=== PATIENT | female | born 1995 | race Two or more races ===

== ENCOUNTER 2017-09-18 13:55 | Emergency (ER) | payer MEDICAID ==
[2017-09-18 14:55] LABS: BILIRUBIN,URINE NEGATIVE (NEG); CLARITY,URINE CLEAR; COLOR,URINE YELLOW; GLUCOSE,URINE NEGATIVE (NEG); NITRITE,URINE NEGATIVE (NEG); PH,URINE 5.5; PROTEIN,URINE NEGATIVE (NEG-TRACE); UROBILINOGEN,URINE 0.2 mg/dL (0.2 mg/dL)
[2017-09-18 15:01] LABS: BACTERIA,URINE MANY /HPF (0-FEW); RBC,URINE 0 /HPF (0-2); SQUAMOUS EPITHELIAL CELL,UR MANY /LPF
[2017-09-18] MEDS: cefTRIAXone IM 250 MG VIAL IM (15:28)
[2017-09-18] MEDS: AZITHROMYCIN 250 MG TABLET. PO (15:28)
== END 2017-09-18 16:47 | disposition home or self-care (01) ==
LOC: ER 13:55
DX: N76.0 Acute vaginitis (principal); B96.89 Other specified bacterial agents as the cause of diseases classified elsewhere; N39.0 Urinary tract infection, site not specified; Z90.49 Acquired absence of other specified parts of digestive tract
CPT/HCPCS: 81001; 96372; 99284-25; J0696; Q0111; Q0144

== ENCOUNTER 2017-10-27 10:28 | Emergency (ER) | payer SELFPAY ==
[~2017-10-27] VITALS: Ht 152.4 cm; Wt 71.7 kg
[~2017-10-27 10:28] MED LIST: METR500T PO; SULF1TAB24 PO
[2017-10-27 10:49] VITALS: BP 104/59
[2017-10-27 11:16] LABS: BILIRUBIN,URINE NEGATIVE (NEG); CLARITY,URINE CLEAR; COLOR,URINE YELLOW; NITRITE,URINE NEGATIVE (NEG); PH,URINE 5.5; PROTEIN,URINE NEGATIVE (NEG-TRACE); UROBILINOGEN,URINE 0.2 mg/dL (0.2 mg/dL)
[2017-10-27 11:33] LABS: BACTERIA,URINE FEW /HPF (0-FEW); RBC,URINE OCC /HPF (0-2)
[2017-10-27 11:34] LABS: SQUAMOUS EPITHELIAL CELL,UR MOD /LPF
[2017-10-27] MEDS ORDERED: cefTRIAXone IM 250 MG VIAL IM ONE ×2 (11:44→12:00)
[2017-10-27] MEDS ORDERED: AZITHROMYCIN 250 MG TABLET. ONE (11:44)
[2017-10-27] MEDS ORDERED: METR500T PO (11:51)
--- NOTE | 2017-10-27 11:51 | PHYS DOC ---
Past Medical History Past Medical History: No Pertinent History Past Surgical History: Appendectomy Alcohol Use: None Drug Use: None Adult General Chief Complaint Chief Complaint: PAIN ON URINATION HPI HPI 22-year-old female presents to ER with complaints of pain with urination. Patient reports symptoms have been ongoing for the past few days. She reports she was treated in the ER on 09/18/17 diagnosed with a UTI and bacterial vaginosis. Patient reports following prescription for Flagyl her symptoms had improved slightly however over the past couple of weeks symptoms have returned with increased yellow vaginal discharge and pelvic pressure. She reports she has been sexually active since treatment last month with her boyfriend. Patient denies fever or chills, fatigue, or back pain. Patient reports she is uncertain of as her menstrual cycle has been slightly irregular. Review of Systems Review of Systems Constitutional: Denies fever or chills [] Eyes: Denies change in visual acuity, redness, or eye pain [] HENT: Denies nasal congestion or sore throat [] Respiratory: Denies cough or shortness of breath [] Cardiovascular: Denies chest pain or palpitations GI: Denies abdominal pain, nausea, vomiting, bloody stools or diarrhea [] : Reports dysuria. Denies hematuria or incontinence. Reports pelvic pressure with yellow vaginal discharge. Musculoskeletal: Denies back pain or joint pain [] Integument: Denies rash or skin lesions [] Neurologic: Denies headache, focal weakness or sensory changes [] All other systems were reviewed and found to be within normal limits, except as documented in this note. Current Medications Current Medications Current Medications Medications (Trade) Dose Ordered Sig/[facility] Start Time Stop Time Status Last Admin Dose Admin Azithromycin (Zithromax) 1,000 mg 1X ONCE 10/27/17 12:00 10/27/17 12:33 DC Ceftriaxone Sodium (Rocephin Im) 250 mg 1X ONCE 10/27/17 12:00 10/27/17 12:33 DC Allergies Allergies Allergies Coded Allergies Type Severity Reaction Last Updated Verified No Known Drug Allergies 09/18/17 No Physical Exam Physical Exam Constitutional: Well developed, well nourished, no acute distress, non-toxic appearance. [] HENT: Normocephalic, atraumatic, bilateral ears normal, mucous membranes pink/ moist, no oral exudates, nose normal. [] Eyes: PERRLA, conjunctiva normal, no discharge. [] Neck: Normal range of motion, no tenderness, supple Cardiovascular:Heart rate regular rhythm, no murmur [] Lungs & Thorax: Bilateral breath sounds clear to auscultation. Resp. equal/ nonlabored Abdomen: Bowel sounds normal, soft/nondistended, no tenderness, no masses Skin: Warm, dry, no erythema, no rash. [] Back: No tenderness, no CVA tenderness. [] Extremities: No tenderness, no cyanosis, no clubbing, ROM intact, no edema. [] Neurologic: Alert and oriented X 3, normal motor function, normal sensory function, no focal deficits noted. [] Psychologic: Affect normal, judgement normal, mood normal. [] Current Patient Data Vital Signs Vital Signs Date Time Temp Pulse Resp B/P (MAP) Pulse Ox O2 Delivery O2 Flow Rate FiO2 10/27/17 10:49 98.5 72 20 104/59 (74) 98 Room Air 98.5 Lab Values Laboratory Tests Test 10/27/17 10:50 10/27/17 11:08 Urine Collection Type Unknown Urine Color Yellow Urine Clarity Clear Urine pH 5.5 Urine Specific [place] 1.020 Urine Protein Negative mg/dL (NEG-TRACE) Urine Glucose (UA) Negative mg/dL (NEG) Urine Ketones (Stick) Negative mg/dL (NEG) Urine Blood Negative (NEG) Urine Nitrite Negative (NEG) Urine Bilirubin Negative (NEG) Urine Urobilinogen Dipstick 0.2 mg/dL (0.2 mg/dL) Urine Leukocyte Esterase Trace (NEG) Urine RBC Occ /HPF (0-2) Urine WBC 11-20 /HPF (0-4) Urine Squamous Epithelial Cells Mod /LPF Urine Bacteria Few /HPF (0-FEW) Urine Mucus Mod /LPF POC Urine HCG, Qualitative Hcg negative (Negative) EKG EKG [] Radiology/Procedures Radiology/Procedures [] Course & Med Decision Making Course & Med Decision Making Pertinent Labs reviewed. (See chart for details) Pt is preferring not to have another pelvic exam as her sxs are similar to last month. UA was obtained and showed trace leuks with 11-20 WBCs neg. nitrates- UCG neg. Further discussion and pt is just wanting Rx for Flagyl with no additional tests. Discussed tx with IM Rocephin and PO Azithromycin and pt is not wanting those medications this time. UA GC/chlamydia is pending and pt is aware and prefers to wait on tx. Discussed need for f/u with [facility] for further care/eval- will provide community resources for clinics/physicians. Will tx UTI with Keflex. Pt advised on condom use until infection sxs resolve. At time of discharge discussion pt was in no visible distress/nontoxic. Discharge instructions discussed and education provided on signs and symptoms to return to ER for. [employer] issues- Keflex 500mg 1 BID x7 days Rx hand written Dragon Disclaimer Dragon Disclaimer This electronic medical record was generated, in whole or in part, using a voice recognition dictation system. Departure Departure Impression: Primary Impression: UTI (urinary tract infection) Additional Impression: Bacterial vaginal infection Disposition: 01 HOME, SELF-CARE Referrals: NO PCP (PCP) Patient Instructions: Bacterial Vaginosis, Urinary Tract Infection Additional Instructions: Condom use while vaginal discharge/vaginal symptoms continue- you need follow- up with an [facility]OD TE[facility] doctor for re-evaluation Scripts Metronidazole (FLAGYL) 500 Mg Tablet 1 TAB PO BID, #14 TAB 0 Refills Prov: COCO ZHENG APRN 10/27/17 Problem Qualifiers COCO ZHENG APRN Oct 27, 2017 11:51
[2017-10-27] MEDS ORDERED: AZITHROMYCIN 250 MG TABLET. PO ONE (12:00)
== END 2017-10-27 11:59 | disposition home or self-care (01) ==
LOC: ER 10:28
DX: N39.0 Urinary tract infection, site not specified (principal); N76.0 Acute vaginitis; B96.89 Other specified bacterial agents as the cause of diseases classified elsewhere; Z90.49 Acquired absence of other specified parts of digestive tract
CPT/HCPCS: 81001; 81025; 87086; 99284

== ENCOUNTER 2018-03-01 00:36 | Emergency (ER) | payer SELFPAY ==
[~2018-03-01] VITALS: Ht 152.4 cm; Wt 68.0 kg
[2018-03-01 00:48] VITALS: BP 141/88
[2018-03-01] MEDS ORDERED: ERYT1OIN6 OS (01:11)
--- NOTE | 2018-03-01 01:11 | PHYS DOC ---
Past Medical History Past Medical History: No Pertinent History Past Surgical History: Appendectomy, Other Additional Past Surgical Histo: HERNIA REPAIR Alcohol Use: None Drug Use: None Adult General Chief Complaint Chief Complaint: EYE PROBLEMS HPI HPI Patient is a 22 year old female who presents with swelling of her left lower lid that began 3 days ago and noted spreading to the upper lid today. Patient is been using [id number] stye lubricant ointment without any relief. No visual changes. No fever. There is a small amount of mattering. No photophobia. No trauma. Nothing seems to make the symptoms better or worse.[] Review of Systems Review of Systems Constitutional: Denies fever or chills [] Eyes: Denies change in visual acuity, see history of present illness[] HENT: Denies nasal congestion or sore throat [] Respiratory: Denies cough or shortness of breath [] Cardiovascular: No chest pain or palpitations[] GI: Denies abdominal pain, nausea, vomiting, bloody stools or diarrhea [] : Denies dysuria or hematuria [] Musculoskeletal: Denies back pain or joint pain [] Integument: Denies rash or skin lesions [] Neurologic: Denies headache, focal weakness or sensory changes [] Endocrine: Denies polyuria or polydipsia [] All other systems were reviewed and found to be within normal limits, except as documented in this note. Allergies Allergies Allergies Coded Allergies Type Severity Reaction Last Updated Verified No Known Drug Allergies 09/18/17 No Physical Exam Physical Exam Constitutional: Well developed, well nourished, no acute distress, non-toxic appearance. [] HENT: Normocephalic, atraumatic, bilateral external ears normal, oropharynx moist, no oral exudates, nose normal. [] Eyes: PERRLA, EOMI, conjunctiva normal, left lower lid has a stye present at the medial one third point. Fundi are normal.. [] Neck: Normal range of motion, no tenderness, supple, no stridor. [] Cardiovascular:Heart rate regular rhythm, no murmur [] Lungs & Thorax: Bilateral breath sounds clear to auscultation [] Abdomen: Not examined[] Skin: Warm, dry, no erythema, no rash. [] Back: No tenderness, no CVA tenderness. [] Extremities: No tenderness, no cyanosis, no clubbing, ROM intact, no edema. [] Neurologic: Alert and oriented X 3, normal motor function, normal sensory function, no focal deficits noted. [] Psychologic: Affect normal, judgement normal, mood normal. [] Current Patient Data Vital Signs Vital Signs Date Time Temp Pulse Resp B/P (MAP) Pulse Ox O2 Delivery O2 Flow Rate FiO2 03/01/18 00:48 98.1 78 20 141/88 (105) 97 Room Air 98.1 EKG EKG [] Radiology/Procedures Radiology/Procedures [] Course & Med Decision Making Course & Med Decision Making Pertinent Labs and Imaging studies reviewed. (See chart for details) [] Dragon Disclaimer Dragon Disclaimer This electronic medical record was generated, in whole or in part, using a voice recognition dictation system. Departure Departure Impression: Primary Impression: Stye external Disposition: HOME, SELF-CARE Condition: Referrals: NO PCP (PCP) Patient Instructions: Sty Additional Instructions: Apply warm compresses for minutes at a time, at least 4 times a day. Follow-up with your regular doctor in 2 days. Return to the ER if worsening pain, change in vision, or any other concerns. Scripts Erythromycin Base (Erythromycin) 1 Gm Oint...g. 1 JASSON OS QID for 5 Days, MISC Prov: PATRICK GRANDA DO 03/01/18 Problem Qualifiers Primary Impression: Stye external Laterality: left Eyelid: lower Qualified Codes: H00.015 - Hordeolum externum left lower eyelid PATRICK GRANDA DO Mar 01, 2018 01:11
== END 2018-03-01 01:26 | disposition home or self-care (01) ==
LOC: ER 00:36
DX: H00.015 Hordeolum externum left lower eyelid (principal)
CPT/HCPCS: 99283